=== PATIENT | female | born 1985 | race Hispanic/Latino ===

== ENCOUNTER 2018-02-26 07:51 | Emergency (ER) | payer OTHER, SELFPAY ==
[2018-02-26] MEDS ORDERED: Lidocaine 1% (PF) 30 ML VIAL ONE (10:03)
[2018-02-26] MEDS ORDERED: Lidocaine 1% PF 5 ML VIAL ONE (11:03)
--- NOTE | 2018-02-26 11:08 | ULT ---
RIGHT BREAST ULTRASOUND: HISTORY: A 33-year-old female with erythema, warmth, and likely abscess just beneath the skin in the right arelis ast, 12 o'clock position. TECHNIQUE: Multiplanar fraire-scale and color Doppler images were obtained in a targeted ultrasound of the area of abnormality in the right breast. FINDINGS: At the 12 o'clock position of the right breast, there is a hypoechoic region, without significant inc reased internal flow. This measures 3.9 x 3 x 2.2 cm in size and likely represents an abscess. This is just beneath the skin surface. IMPRESSION: 1. Phlegmon/abscess in the right breast, as above. 2. BI-RADS category 3-Probable benign findings. A follow-up ultrasound in four to six weeks is recommended to ensure resolution after treatment. POS: [facility]
== END 2018-02-26 12:40 | disposition home or self-care (01) ==
LOC: ERS 07:51
DX: N61.1 Abscess of the breast and nipple (principal); R05 Cough; F17.210 Nicotine dependence, cigarettes, uncomplicated
CPT/HCPCS: 10061; J2001

== ENCOUNTER 2022-08-30 12:26 | Emergency (ER) | payer MEDICAID, SELFPAY ==
[2022-08-30] MEDS ORDERED: Lidocaine 4% Cream 5 GM TUBE w/ Tegaderm ONE (13:00)
[2022-08-30] MEDS ORDERED: Lidocaine 1% w/Epinephrine 1:100K 20 ML VIAL ONE (13:49)
[2022-08-30] MEDS ORDERED: HYDROcodone/Acetaminophen 5/325 mg Tablet ONE (15:36)
[2022-08-30] MEDS ORDERED: Bacitracin 1 PK ONE (15:41)
== END 2022-08-30 15:50 | disposition home or self-care (01) ==
LOC: ERS 12:26
DX: S61.412A Laceration without foreign body of left hand, initial encounter (principal); F17.210 Nicotine dependence, cigarettes, uncomplicated; W26.8XXA Contact with other sharp object(s), not elsewhere classified, initial encounter; Y99.0 Civilian activity done for income or pay
CPT/HCPCS: 12002

== ENCOUNTER 2023-12-28 18:38 | Emergency (ER) | payer SELFPAY ==
[2023-12-28 19:23] LABS: #Basophils 0.07 10x3/uL (0.0-0.2); %Basophils 0.9 % (0.0-1.0); %Eosinophils 1.4 % (0.0-10.0); %Lymphocytes 24.3 % (21.0-51.0); %Monocytes 5.5 % (0.0-10.0); %Neutrophils 67.6 % (42.0-75.0); Hematocrit 40.6 % (36.0-47.0); Hemoglobin 13.5 g/dL (12.0-16.0); Mean Corpuscular HGB CONC 33.3 g/dL (32.0-36.0); Mean Corpuscular Volume 96.2 fL (78.0-98.0); Mean Platelet Volume 9.9 fL (7.4-10.4); Platelet Count 246 10x3/uL (130-400); RBC Distribution Width 12.7 % (11.5-14.5); Red Blood Cell (RBC) Count 4.22 mill/uL (4.20-5.40)
[2023-12-28 19:43] LABS: ALT (SGPT) 15 U/L (8-55); AST (SGOT) 22 U/L (5-34); Albumin 3.8 g/dL (3.5-5.0); Alkaline Phosphatase 46 U/L (40-110); Anion Gap 15 mmol/L (10-20); BUN (Urea Nitrogen) 11 mg/dL (7.0-18.7); Bilirubin, Total 0.2 mg/dL (0.2-1.2); Calc. Creatinine Clearance 0 mL/min (70-130); Calcium 8.8 mg/dL (7.8-10.44); Carbon Dioxide 17 mmol/L (22-29); Chloride 108 mmol/L (98-107); Estimated GFR 107; Globulin 3.4 g/dL (2.4-3.5); Glucose 107 mg/dL (70-105); Potassium 3.3 mmol/L (3.5-5.1); Protein, Total 7.2 g/dL (6.0-8.3); Sodium 137 mmol/L (136-145)
[2023-12-28] MEDS ORDERED: Lidocaine 2% Viscous 10 mL, Alum & Magn 30 mL SSW SCH (20:30)
== END 2023-12-28 20:21 | disposition home or self-care (01) ==
LOC: ERS 18:38
DX: R07.89 Other chest pain (principal); K21.00 Gastro-esophageal reflux disease with esophagitis, without bleeding; E87.20 Acidosis, unspecified; R01.1 Cardiac murmur, unspecified; F17.210 Nicotine dependence, cigarettes, uncomplicated
CPT/HCPCS: 36415; 71046; 80053; 84484; 85025; 93005